=== PATIENT | female | born 1980 | race Caucasian/White ===

== ENCOUNTER → 2016-12-21 | Outpatient (CLI) | payer BC ==
[2016-12-21 12:46] LABS: PROLACTIN 9.1 NG/ML
== END ==
LOC: M LAB 11:22
PROVIDERS: ATTEND Physician Assistant
DX: N91.0 Primary amenorrhea (principal)

== ENCOUNTER → 2017-08-01 | Outpatient (REF) | payer BC | LOC: M LAB REF 17:58 | DX: J02.9 Acute pharyngitis, unspecified (principal) | CPT/HCPCS: 87081 ==

== ENCOUNTER 2018-04-13 06:22 | Day surgery (SDC) | payer BC ==
[~2018-04-13 06:22] MED LIST: LR 1,000 ML IV
[2018-04-13 06:55] LABS: HEMATOCRIT 38.3 % (36.0-47.0); HEMOGLOBIN 12.6 g/dl (12.0-15.5); MEAN CORPUSCULAR HEMOGLOBIN 28.9 pg (27.0-33.0); MEAN CORPUSCULAR HGB CONC 32.9 g/dl (32.0-36.5); MEAN CORPUSCULAR VOLUME 87.8 fl (80.0-96.0); PLATELET COUNT, AUTOMATED 309 10^3/uL (150-450); RED BLOOD COUNT 4.36 10^6/uL (4.00-5.40); WHITE BLOOD COUNT 9.1 10^3/uL (4.0-10.0)
[2018-04-13 07:09] LABS: CONTROL LINE UCG INT CTR LINE PRESENT; URINE PREG TEST NEGATIVE (NEGATIVE)
[2018-04-13] MEDS ORDERED: PROPOFOL 200 MG/20 ML VIAL As Ordered (07:19)
[2018-04-13] MEDS ORDERED: LIDOCAINE 2% INJ 100 MG/5 ML SDV (FOR ANES.) As Ordered (07:19)
[2018-04-13] MEDS ORDERED: MIDAZOLAM INJ 2 MG/2 ML VIAL (J2250) As Ordered (07:19)
[2018-04-13] MEDS ORDERED: fentaNYL 100 MCG/2 ML INJECTION (J3010) As Ordered (07:20)
[2018-04-13] MEDS: SILVER NITRATE APPLICATOR As Ordered (07:45)
[2018-04-13] MEDS: LIDOCAINE W/EPINEPHRINE 1% 20ML VIAL As Ordered (07:46)
[2018-04-13] MEDS ORDERED: ONDANSETRON 4MG/2ML VIAL (J2405) As Ordered (08:03)
[2018-04-13] MEDS ORDERED: dexameTHASONE 4 MG/ML 1ML VIAL (J1100) As Ordered (08:03)
[2018-04-13] MEDS ORDERED: KETOROLAC 60 MG/2 ML VIAL (J1885) As Ordered (08:03)
[2018-04-13] MEDS ORDERED: METOCLOPRAMIDE INJ 10MG/2ML VIAL (J2765) As Ordered (08:03)
[2018-04-13] MEDS: LIDOCAINE 1% SDV INJ 30 ML VIAL As Ordered (08:07)
[2018-04-13] MEDS ORDERED: ONDANSETRON 4MG/2ML VIAL (J2405) IV (09:00)
[2018-04-13] MEDS ORDERED: HYDROMORPHONE HCL 0.5 MG/ 0.5 ML SYRINGE (J1170 PER 1) IV (09:00)
[2018-04-13] MEDS ORDERED: LR 1,000 ML IV ×2 (09:00)
[2018-04-13] MEDS ORDERED: fentaNYL 100 MCG/2 ML INJECTION (J3010) IV (09:00)
[2018-04-13] MEDS ORDERED: PERCOCET 5MG/325MG TAB PO (09:00)
== END 2018-04-13 09:51 | disposition home or self-care (01) ==
LOC: M SDC 06:22
DX: D28.0 Benign neoplasm of vulva (principal); K21.9 Gastro-esophageal reflux disease without esophagitis; E78.5 Hyperlipidemia, unspecified; F41.9 Anxiety disorder, unspecified; F32.9 Major depressive disorder, single episode, unspecified; E66.9 Obesity, unspecified; Z68.38 Body mass index [BMI] 38.0-38.9, adult; Z79.899 Other long term (current) drug therapy; Z79.3 Long term (current) use of hormonal contraceptives
CPT/HCPCS: 56620

== ENCOUNTER → 2020-04-24 | Outpatient (REF) | payer BC ==
[~2020-04-24] MED LIST changes: +ATOR1TAB19 PO; +CITA20TA6 PO; +GLYD10GE TOP; +IBUP80TA PO; -LR 1,000 ML IV; +OMEP40CA97 PO; +birth control pill PO
== END ==
LOC: M LAB REF 12:15
PROVIDERS: ATTEND Physician Assistant
DX: J02.9 Acute pharyngitis, unspecified (principal)

== ENCOUNTER → 2020-07-29 | Outpatient (CLI) | payer BC | LOC: M LABSMTC 14:18 | PROVIDERS: ATTEND Family Medicine | DX: Z20.828 Contact with and (suspected) exposure to other viral communicable diseases (principal) ==

== ENCOUNTER → 2020-10-01 | Outpatient (CLI) | payer BC, OTHER ==
--- NOTE | 2020-10-01 15:56 | REP ---
INDICATION: PAIN COMPARISON: None. TECHNIQUE: Internal rotation, external rotation, and Y view. FINDINGS: No acute fracture or dislocation. The acromioclavicular and glenohumeral joints are intact and essentially age-appropriate. No periarticular calcifications or significant degenerative changes are appreciated. Sub acromial space is normal. Surrounding soft tissues are unremarkable. IMPRESSION: Normal age-appropriate right shoulder radiographs. <Electronically signed by Darren Lopez > 10/01/20 [id number]
== END ==
LOC: M WUC 15:19
PROVIDERS: ATTEND Physician Assistant
DX: M25.511 Pain in right shoulder (principal)

== ENCOUNTER 2025-03-19 22:20 | Emergency (ER) | payer OTHER, SELFPAY ==
[~2025-03-19] VITALS: Ht 175.3 cm; Wt 123.3 kg
[~2025-03-19 22:20] MED LIST changes: +OMEP40CA4 PO; -OMEP40CA97 PO
[2025-03-20] MEDS ORDERED: PENI500T PO (00:47)
[2025-03-20] MEDS: ACETAMINOPHEN 500 MG TAB PO ONE (01:04)
[2025-03-20] MEDS: LIDOCAINE VISCOUS 2% SOLN 15 ML UDC SSP ONE (01:04)
[2025-03-20] MEDS: PENICILLIN V POTASSIUM 500 MG TAB PO ONE (01:16)
[2025-03-20 01:22] VITALS: BP 157/88; TEMP 99.2; O2SAT 98
== END 2025-03-20 01:25 | disposition home or self-care (01) ==
LOC: M ED 22:20
DX: J02.0 Streptococcal pharyngitis (principal); E78.5 Hyperlipidemia, unspecified; K21.9 Gastro-esophageal reflux disease without esophagitis; F41.9 Anxiety disorder, unspecified; F32.A Depression, unspecified; Z79.3 Long term (current) use of hormonal contraceptives; Z79.899 Other long term (current) drug therapy